=== PATIENT | male | born 1945 | race Caucasian/White ===

== ENCOUNTER → 2017-07-21 | Outpatient (CLI) | payer MEDICARE ==
[~2017-07-21] MED LIST: BACTRIM DS 8001 TA1 PO; CEPHALEXIN500 M1 PO
[2017-07-21 15:48] LABS: BASO % 0.7 % (0.0-1.0); EOS # 0.1 10*3/uL (0.0-0.4); HEMATOCRIT 44.7 % (42.0-52.0); HEMOGLOBIN 15.3 g/dl (14.0-18.0); LYMPH # 1.9 10*3/uL (1.3-4.4); LYMPH % 30.8 % (27.0-41.0); MEAN CORPUSCULAR HGB 29.8 pg (27.0-31.0); MEAN CORPUSCULAR HGB CONC 34.2 g/dl (33.0-37.0); MONO # 0.5 10*3/uL (0.1-1.0); MONO % 7.3 % (3.0-9.0); NEUT # 3.6 10*3/uL (2.3-7.9); NEUT % 58.9 % (47.0-73.0); PLATELET COUNT AUTOMATED 226 10*3/uL (130-400); RED BLOOD COUNT 5.14 10*6/uL (4.50-5.90); WHITE BLOOD COUNT 6.1 10*3/uL (4.8-10.8)
[2017-07-21 15:51] LABS: BILIRUBIN NEGATIVE (NEGATIVE); BLOOD NEGATIVE (NEGATIVE); CLARITY CLEAR (CLEAR); COLOR YELLOW (YELLOW); GLUCOSE NEGATIVE (NEGATIVE); KETONE NEGATIVE (NEGATIVE); LEUKO ESTERASE NEGATIVE (NEGATIVE); NITRITE NEGATIVE (NEGATIVE); PH 6.5 (5.0-9.0); UROBILINOGEN 0.2 E.U./dl (0.2-1.0)
[2017-07-21 15:57] LABS: ACT PARTIAL THROMBO TIME 23.1 SECONDS (20.8-31.5)
[2017-07-21 16:03] LABS: ALBUMIN 3.7 gm/dl (3.1-4.5); ALKALINE PHOSPHATASE 101 U/L (45-117); BUN 14 mg/dl (7-24); CHLORIDE 105 mmol/L (98-107); CREATININE 1.13 mg/dL (0.70-1.30); POTASSIUM 3.8 mmol/L (3.5-5.1); SGOT/AST 21 IU/L (3-35); SGPT/ALT 27 U/L (12-78); SODIUM 140 mmol/L (136-145); TOTAL PROTEIN 7.2 gm/dL (6.4-8.2)
[2017-07-21 16:07] LABS: BACTERIA TRACE; WBC 0-2 wbc/hpf (0-5)
[2017-07-22 08:11] LABS: RHEUMATOID ARTHRITIS FACTOR <10.0 IU/mL (0.0-13.9)
[2017-07-22 12:08] LABS: ANTI-RNP ANTIBODIES 0.2 AI (0.0-0.9); ANTI-SMITH ANTIBODIES <0.2 AI (0.0-0.9)
[2017-07-23 00:04] LABS: CCP ANTIBODIES IGG/IGA 12 units (0-19)
[2017-07-23 01:06] LABS: DILUTE PROTHROMBIN TIME 49.5 sec (0.0-55.0); DPT CONFIRM RATIO 1.08 Ratio (0.00-1.40); LUPUS DRVVT 42.2 sec (0.0-47.0); THROMBIN TIME 20.6 sec (0.0-23.0)
[2017-07-23 02:08] LABS: LUPUS REFLEX INTERPRETATION Comment: (.)
[2017-07-27 11:06] LABS: HLA-B27 ANTIGEN Negative (.)
== END | disposition home or self-care (01) ==
LOC: LAB 15:25
PROVIDERS: Orthopaedic Surgery
DX: Z01.818 Encounter for other preprocedural examination (principal); M19.90 Unspecified osteoarthritis, unspecified site; M25.50 Pain in unspecified joint; R79.89 Other specified abnormal findings of blood chemistry

== ENCOUNTER → 2018-08-05 | Outpatient (CLI) | payer MEDICARE ==
[2018-08-09 00:05] LABS: ALTERNARIA ALTERNATA, IGE <0.10 kU/L (Class 0); AMERICAN ELM, IGE <0.10 kU/L (Class 0); ASPERGILLUS FUMIGATU, IGE <0.10 kU/L (Class 0); BERMUDA GRASS, IGE <0.10 kU/L (Class 0); BIRCH, COMMON SILVER IGE <0.10 kU/L (Class 0); CLADOSPORIUM HERBARU, IGE <0.10 kU/L (Class 0); D FARINAE MITE <0.10 kU/L (Class 0); D PTERONYSSINUS <0.10 kU/L (Class 0); DOG DANDER, IGE <0.10 kU/L (Class 0); IMMUNOGLOBULIN IgE 002170 21 IU/mL (0-100); MAPLE LEAF SYCAMORE, IGE <0.10 kU/L (Class 0); MAPLE/BOX ELDER, IGE <0.10 kU/L (Class 0); MOUSE URINE IGE <0.10 kU/L (Class 0); PENICILLIUM CHRYSOGENUM, IGE <0.10 kU/L (Class 0); ROUGH PIGWEED, IGE <0.10 kU/L (Class 0); SHEEP SORREL (DOCK), IGE <0.10 kU/L (Class 0); SHORT RAGWEED, IGE <0.10 kU/L (Class 0); TIMOTHY, IGE <0.10 kU/L (Class 0); WALNUT TREE, IGE <0.10 kU/L (Class 0); WHITE ASH, IGE <0.10 kU/L (Class 0); WHITE MULBERRY, IGE <0.10 kU/L (Class 0); WHITE OAK, IGE <0.10 kU/L (Class 0)
== END | disposition home or self-care (01) ==
LOC: LAB 13:42
PROVIDERS: Family Medicine
DX: J30.2 Other seasonal allergic rhinitis (principal)

== ENCOUNTER → 2018-08-08 | Outpatient (CLI) | payer MEDICARE ==
--- NOTE | ~2018-08-08 | PF ---
[place], [place] PULMONARY FUNCTION TEST [id number] UNIT #: [id number] ROOM: DOCTOR: DARLENE WAGNER MD,VALERI BIRTHDATE: [birth year] DOS: 08/08/2018 HISTORY: The patient is a 73-year-old male, height 69 inches, weight of 178 pounds. The testing was ordered by Dr. Cummings for assessment of symptoms of shortness of breath. The patient was noted with a history of tobacco use, 2 packs of cigarettes per day for 18 years. Tobacco cessation was done 40 years ago. SPIROMETRY: The FVC was recorded as 3.82 liters, 94% predicted value. The FEV1 was 2.72 liters, 88% predicted value. Ratio of FEV1/FVC was 71%. Flow volume loop was suggestive of mild obstructive lung disease. Partial improvement noted post-bronchodilator, no clinical significant improvement. LUNG VOLUMES: Thoracic gas volume recorded as 86%, residual volume 97%, total lung capacity 91%. The patient's lung diffusion recorded as 77%, low normal. The patient's airway resistance and passive conductance normal. Partial improvement post-bronchodilator test. FINAL IMPRESSION: Evidence of mild obstructive lung disease would be considered. Clinical correlation advised. VALERI COLON MD CM:PFREPORT:PULMONARY FUNCTION TEST [id number] VALERI WAGNER MD
== END | disposition home or self-care (01) ==
LOC: CP 08:18
DX: R06.02 Shortness of breath (principal); R06.00 Dyspnea, unspecified

== ENCOUNTER → 2018-08-26 | Outpatient (CLI) | payer MEDICARE ==
[2018-08-26 14:26] LABS: BASO % 0.6 % (0.0-1.0); EOS # 0.2 10*3/uL (0.0-0.4); EOS % 3.2 % (1.0-4.0); HEMATOCRIT 43.2 % (42.0-52.0); HEMOGLOBIN 14.3 g/dl (14.0-18.0); LYMPH # 1.2 10*3/uL (1.3-4.4); LYMPH % 24.1 % (27.0-41.0); MEAN CELL VOLUME 89.8 fl (80.0-94.0); MEAN CORPUSCULAR HGB 29.7 pg (27.0-31.0); MEAN CORPUSCULAR HGB CONC 33.1 g/dl (33.0-37.0); MEAN PLATELET VOLUME 9.7 fl (9.6-12.3); MONO # 0.8 10*3/uL (0.1-1.0); MONO % 16.2 % (3.0-9.0); NEUT # 2.8 10*3/uL (2.3-7.9); NEUT % 55.7 % (47.0-73.0); PLATELET COUNT AUTOMATED 264 10*3/uL (130-400); RED BLOOD COUNT 4.81 10*6/uL (4.50-5.90); RED CELL DISTRI WIDTH 12.9 % (0-14.5); WHITE BLOOD COUNT 5.1 10*3/uL (4.8-10.8)
[2018-08-26 14:54] LABS: ALBUMIN 3.1 gm/dl (3.1-4.5); ALKALINE PHOSPHATASE 148 U/L (45-117); BUN 12 mg/dl (7-24); CHLORIDE 103 mmol/L (98-107); CPK 173 U/L (39-308); CREATININE 1.05 mg/dL (0.70-1.30); POTASSIUM 4.1 mmol/L (3.5-5.1); SGOT/AST 57 IU/L (3-35); SGPT/ALT 41 U/L (12-78); SODIUM 141 mmol/L (136-145); TOTAL PROTEIN 7.6 gm/dL (6.4-8.2)
== END | disposition home or self-care (01) ==
LOC: LAB 13:59
PROVIDERS: Family Medicine
DX: Z12.5 Encounter for screening for malignant neoplasm of prostate (principal); M79.10 Myalgia, unspecified site; M25.50 Pain in unspecified joint; R05 Cough

== ENCOUNTER → 2018-08-29 | Outpatient (CLI) | payer MEDICARE | END | disposition home or self-care (01) | LOC: CT 14:38 | DX: R06.02 Shortness of breath (principal); R05 Cough; R50.9 Fever, unspecified; R09.89 Other specified symptoms and signs involving the circulatory and respiratory systems ==

== ENCOUNTER → 2018-09-02 | Outpatient (CLI) | payer MEDICARE | END | disposition home or self-care (01) | LOC: CT 14:49 | DX: K57.30 Diverticulosis of large intestine without perforation or abscess without bleeding (principal); K40.90 Unilateral inguinal hernia, without obstruction or gangrene, not specified as recurrent; M43.8X5 Other specified deforming dorsopathies, thoracolumbar region ==

== ENCOUNTER → 2018-12-09 | Outpatient (CLI) | payer MEDICARE ==
[2018-12-09 13:47] LABS: CREATININE 0.95 mg/dL (0.70-1.30)
== END | disposition home or self-care (01) ==
LOC: LAB 13:15
PROVIDERS: Radiology Diagnostic Radiology
DX: R94.4 Abnormal results of kidney function studies (principal)

== ENCOUNTER → 2018-12-12 | Outpatient (CLI) | payer MEDICARE | END | disposition home or self-care (01) | LOC: CT 08:54 | DX: Z51.11 Encounter for antineoplastic chemotherapy (principal); Z45.2 Encounter for adjustment and management of vascular access device; C15.5 Malignant neoplasm of lower third of esophagus; C78.7 Secondary malignant neoplasm of liver and intrahepatic bile duct; R11.2 Nausea with vomiting, unspecified ==